=== PATIENT | male | born 1965 | race Caucasian/White ===

== ENCOUNTER 2022-09-25 12:54 | Day surgery (SDC) | payer OTHER, SELFPAY ==
[2022-09-25] VITALS (12 sets, daily range): BP systolic 140–157; BP diastolic 82–90; PULSE 65–74; RESP 16–20; TEMP 36.3–36.4; O2SAT 95–99
[2022-09-25] MEDS: BUPIVACAINE 0.5% 30 ML INJECTION (14:49)
--- NOTE | 2022-09-25 15:23 | PM.ORPRC ---
Procedure Note Date of procedure: 09/25/22 Procedure: PREOPERATIVE DIAGNOSIS: 1. Right index finger volar benign mass POSTOPERATIVE DIAGNOSIS: 1. Right index finger volar benign mass PROCEDURE: 1. Right index finger volar benign mass open excision (6 x 6 x 8 mm) SURGEON: Angel Abad MD. PRODUCT DEVELOPMENT SCIENTIST: None ANESTHESIA: Local anesthetic digital block (50:50 mixture of 2% lidocaine with epi and 0.5% marcaine plain) IMPLANTS: None TOURNIQUET: Digital tourniquet for 10 minutes COMPLICATIONS: None evident INDICATIONS: The patient is a pleasant 56-year-old male who has experienced right volar index finger pain associated with a tumor/growth that has been forming over number of months. 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 It is enlarging and becoming more painful and now affecting his recreational and occupational activities on a daily basis. Given the failure of nonoperative management, and how this affects daily life, surgery was recommended. DESCRIPTION OF PROCEDURE: Following a thorough discussion of risks, benefits, and alternatives consent was obtained and the operative extremity was marked. The patient was brought to the operating room and placed supine on the operating table. No antibiotics were administered as this was planned to be a local case only. Proper time-out was performed identifying proper patient, site, and procedure. The operative extremity was prepped and draped in the appropriate sterile fashion using ChloraPrep. The limb was exsanguinated and the tourniquet inflated. A longitudinal incision was made on the volar aspect of the index finger distal phalanx pad. Sharp incision through skin and blunt dissection through the subcutaneous tissue allowed us to identify a white growth/tumor. This was mobilized from the subcutaneous tissue surrounding it and the deeper layers with a combination of 15 blade and tenotomy scissors. Upon grasping the tumor itself, it was punctured and a thick white substance was expressed. The tumor itself measured approximately 6 x 6 x 8 mm. Following removal, bipolar cautery was also utilized to help with hemostasis on the deep tissue surfaces. Thorough irrigation normal saline was performed. Closure was performed with 4-0 Stratafix. Soft dressings were applied, and the patient was awoken/transferred to the recovery room in stable condition. PLAN: 1. Encourage elevation of the operative extremity. 2. Range of motion of the operative extremity/digits as tolerated. 3. Ibuprofen, acetaminophen as needed for pain. 4. Follow up PRN
== END 2022-09-25 15:26 | disposition home or self-care (01) ==
PROVIDERS: PCP Orthopaedic Surgery Sports Medicine; Visit Provider Orthopaedic Surgery Sports Medicine
PROC: (CPT 26160; principal; 2022-09-25 13:30)
DX: L72.0 Epidermal cyst (principal)
CPT/HCPCS: 26160; 88304; J3490

== ENCOUNTER 2024-01-22 07:15 | Day surgery (SDC) | payer OTHER, SELFPAY ==
[2024-01-22] VITALS (14 sets, daily range): BP systolic 112–155; BP diastolic 29–108; PULSE 52–65; RESP 12–18; TEMP 36.1–36.2; O2SAT 95–98; BMI 17.3
[2024-01-22] MEDS: LACTATED RINGERS 1000 ML 1,000 ML 100 ML IV ×2 (07:56→10:33)
[2024-01-22] MEDS: fentaNYL 100 MCG/2 ML inj IVP (09:00)
[2024-01-22] MEDS: MIDAZOLAM HCL 1 MG/ML inj IVP (09:00)
--- NOTE | 2024-01-22 09:01 | SUR.PREOP ---
TIME?OUT:?0859 PT/RN/MDA?VERIFICATION?OF?SURGICAL?SITE,?PROCEDURE,?AND?CONSENT OBTAINED?PRIOR?TO?INVASIVE?PROCEDURE.
[2024-01-22] MEDS: CEFAZOLIN 2 GM INJ IVP (09:40)
--- NOTE | 2024-01-22 10:11 | P.NB_ITS ---
Nerve Block Nerve Block Time Seen by Provider: 09:02 Date Seen: 01/22/24 Type of block requested by surgeon for post-operative analgesia: popliteal Side: left Time out performed: Yes Verification of patient name: Yes Verification of date of : Yes Site marking: site marked Name of person performing procedure: Canelo Continuous monitoring Was continuous monitoring of O2 sat, B/P, case monitor, recorded every 15 minutes?: Yes Procedure Checklist: sterile prep, needles and gloves Ultrasound guided. Images saved: Yes Medications given in 5ml increments after negative aspiration: Marcaine %: 0.25 mL: 10 and Exparel mL: 10 Patient tolerated procedure well: Yes Additional comments: Needle noted adjacent to nerve Block Charges Block Charge (with Pro Fee): Sciatic Nerve Use of Ultrasound Machine for Block: Yes- US Guidance/pain block
--- NOTE | 2024-01-22 11:47 | W.ANESCHARGE ---
Anesthesia Charges Start Date/Time Anesthesia Start Date: 01/22/24 Anesthesia Start Time: 09:40 Stop Date/Time Anesthesia Stop Date: 01/22/24 Anesthesia Stop Time: 11:47
--- NOTE | 2024-01-22 14:56 | PM.ORPRC ---
Procedure Note Date of procedure: 01/22/24 Procedure: SURGEON: Shon Collins MD [employer] OPERATOR: Oralia Shepherd PA-C. PREOPERATIVE DIAGNOSIS: Left foot 2nd toe plantar plate tear POSTOPERATIVE DIAGNOSIS: Left foot 2nd toe plantar plate tear NAME OF OPERATION: Left foot 2nd toe plantar plate repair, with internal brace ANESTHESIA: Spinal plus popliteal block ESTIMATED BLOOD LOSS: 0 mL COMPLICATIONS: None SPECIMENS: None DRAINS: None PREOPERATIVE ANTIBIOTICS: Ancef 2 gram INDICATIONS: The patient is a 18-pvco-oab-year-old with a history of left foot 2nd toe plantar pain and deviation toward the great toe since an injury. Despite appropriate nonoperative management, including activity modification, antiinflammatories, [id number] pain medication and taping of the toe to correct the deformity, they continue to have pain and disability. Operative intervention was offered. The risks, benefits and expected outcomes were discussed in detail. These included but were not limited to: Infection, bleeding, injury to blood vessel or nerve, venous thromboembolism. All questions were answered to their satisfaction. PROCEDURE: A popliteal block was placed. Spinal anesthesia was administered. The patient was placed supine on the operating room table. The left lower extremity was prepped and draped in the usual sterile fashion. The limb was exsanguinated with the Gregg bandage. The pneumatic tourniquet was inflated to 300 mmHg. A longitudinal incision was made dorsally over the 2nd MTP joint. Subcutaneous dissection was sharply taken to the joint which was subperiosteal exposed, from the medial side. The insertion of the collateral ligaments was released off the base of the proximal phalanx. The McGlamery elevator was used to free up the plantar plate off of the base of the metatarsal neck. The oscillating saw was used to make the Domenic osteotomy, 3 mm into the articular cartilage of the metatarsal head. The Jose osteotome was used to free up the head fragment. We then advanced it 5 mm proximally and provisionally pinned it with a K-wire from dorsal. The plantar plate was torn from insertion on the base of the proximal phalanx, medially. There was some poor quality tissue trying to heal it back in place. The lateral insertion was intact. We released the entirety of the insertion of the plantar plate off of the base of the proximal phalanx. In doing so we cut a portion of flexor digitorum longus, medially. This was repaired with a 4-0 FiberWire using a single [id number] suture. The plantar plate was freed up off of FDL with the tenotomy scissors. A K-wire was placed in the base of the proximal phalanx to accommodate the distractor. The scorpion was used to pass a labral tape through the leading edge of the plantar plate, both medially and laterally. They were secured to it in a luggage tag fashion. Next we addressed the internal brace. A guide pin was drilled from the dorsum of the metatarsal shaft, angled toward the joint 45?. The drill was used over the guide pin. A suture passing wire was placed through the tunnel. We used this to shuttle a labral tape through the metatarsal. We then passed both tails of the labral tape through the plantar plate from dorsal to plantar, using a pigtail suture passer. The K-wire in the base of the proximal phalanx was removed. We placed a guide pin through the dorsum of the proximal phalanx, angling it toward the plantar insertion of the plantar plate. The cannulated drill was used over the guide pin. A suture passer was placed through the tunnel in the proximal phalanx and used to shuttle all 6 limbs of the plantar plate luggage tags and the internal brace through the proximal phalanx. The Domenic osteotomy was then placed in its anatomic location. It was fixed with a single snap-off screw from dorsal. We then held the toe reduced anatomically and tensioned the luggage tag sutures on the plantar plate. A peek interference screw was placed in the tunnel of the proximal phalanx. We then dorsiflexed the lesser toes 10-15 degrees and tensioned the internal brace in the metatarsal. It was secured in this position with a peek interference screw in the metatarsal. The position of the toe appears anatomic. It is stable in all planes. The wound was irrigated with normal saline. Skin was closed with a 3-0 Vicryl deep and a 4-0 Monocryl in a subcuticular fashion. Glue was used to seal the skin. A dry dressing and postop shoe were applied. Sponge and needle counts were correct x2. The patient tolerated the procedure well. There were no apparent complications. They were carefully transferred to the hospital bed and taken to the postanesthesia care unit in satisfactory condition. PLAN: The patient will be discharged to home. They may weightbear as tolerates on the heel, no weight-bearing on the ball of the foot or push off the toes. The foot should be elevated most of the time. They will follow up in the office in 1 week for wound check and 3 nonweightbearing views of the left foot.
== END 2024-01-22 13:14 | disposition home or self-care (01) ==
PROVIDERS: PCP Clinical Nurse Specialist Adult Health; Visit Provider Orthopaedic Surgery
PROC: (CPT 28485; principal; 2024-01-22 08:45)
DX: S93.525A Sprain of metatarsophalangeal joint of left lesser toe(s), initial encounter (principal); S96.2 Injury of intrinsic muscle and tendon at ankle and foot level; G89.18 Other acute postprocedural pain
CPT/HCPCS: 28200; 28308; 01480; 64445; 76942; A4580; C1713; C9290; J0665; J0690; J1100; J1630; J1885; J2250; J2405; J2704; J3010; J7120